=== PATIENT | female | born 1945 | race Asian ===

== ENCOUNTER 2017-12-09 18:45 | Emergency (ER) | payer OTHER ==
[~2017-12-09] VITALS: Ht 154.9 cm; Wt 52.2 kg
[2017-12-09 19:50] VITALS: Ht 154.9 cm; Wt 52.2 kg
[2017-12-09 21:07] LABS: microscopic required? YES; urine erythrocyte NEGATIVE (NEGATIVE)
[2017-12-09 22:16] LABS: BASOPHIL % 0.3 % (0-2); PLATELET COUNT 165 x10^3mcL (130-400)
[2017-12-09 22:18] LABS: CALCIUM 8.5 mg/dL (8.5-10.1); CHLORIDE SERUM 108 mmol/L (98-107); CREATININE SERUM 0.7 mg/dL (0.6-1.0); GLUCOSE SERUM 98 mg/dL (74-106); POTASSIUM SERUM 3.9 mmol/L (3.5-5.1); SODIUM SERUM 142 mmol/L (136-145)
[2017-12-09 22:22] LABS: PHOSPHOROUS 3.1 mg/dL (2.5-4.9)
[2017-12-09 22:24] LABS: RED CELL DISTRIBUTION WIDTH 16.9 % (11.5-14.5)
[2017-12-09 22:34] LABS: CK-MB < 0.5 ng/mL (0-3.6); CREATINE KINASE 42 U/L (26-192)
[2017-12-09 23:32] VITALS: BP 129/76
== END 2017-12-09 23:30 | disposition home or self-care (01) ==
LOC: ED 18:45
PROVIDERS: Emergency Medicine
DX: R42 Dizziness and giddiness (principal); R06.00 Dyspnea, unspecified; N39.0 Urinary tract infection, site not specified; I25.10 Atherosclerotic heart disease of native coronary artery without angina pectoris; I25.2 Old myocardial infarction; Z98.61 Coronary angioplasty status
CPT/HCPCS: 83880; J0696; J2405; J3490; J7030; J8597; Q0092